=== PATIENT | male | born 1980 | race Hispanic/Latino ===

== ENCOUNTER 2025-03-25 10:20 | Emergency (ER) | payer OTHER ==
[~2025-03-25] VITALS: Ht 167.6 cm; Wt 79.5 kg
[2025-03-25 10:38] VITALS: TEMP 97
[2025-03-25 13:00] LABS: BASO # 0.1 10^3/uL (0.0-0.2); BASO % 0.5 % (0.0-1.0); EOS # 0.3 10^3/uL (0.0-0.5); EOS % 2.4 % (0.0-3.0); LYMPH # 2.8 10^3/uL (1.5-5.0); LYMPH % 26.2 % (24.0-44.0); MONO # 0.8 10^3/uL (0.0-0.8); MONO % 7.2 % (2.0-8.0); NEUTROPHILS # 6.7 10^3/uL (1.5-8.5); NEUTROPHILS % 63.3 % (36.0-66.0); PLATELET COUNT, AUTOMATED 315 10^3/uL (150-450)
[2025-03-25 13:06] LABS: ERYTHROCYTE SEDIMENTATION RATE 9 mm/hr (0-15)
[2025-03-25 13:34] LABS: CK-MB VALUE MASS 1.9 NG/ML (<3.6)
[2025-03-25 13:36] LABS: C REACTIVE PROTEIN QUANTITATIV < 0.50 MG/DL (<1.0)
[2025-03-25 13:37] LABS: ALT/SGPT 33 U/L (7.0-40); AST/SGOT 27 U/L (<34); CALCIUM LEVEL 9.1 MG/DL (8.5-10.1); CARBON DIOXIDE LEVEL 27 MMOL/L (20-31); CHLORIDE LEVEL 108 MMOL/L (98-107); CREATININE FOR GFR 0.81 MG/DL (0.70-1.30); GLOMERULAR FILTRATION RATE > 90.0 (>60); MAGNESIUM LEVEL 1.9 MG/DL (1.8-2.4); POTASSIUM SERUM 4.5 MMOL/L (3.5-5.1); SODIUM LEVEL 140 MMOL/L (136-145)
[2025-03-25 13:39] LABS: FREE T4 1.15 NG/DL (0.89-1.76)
[2025-03-25 13:43] LABS: CPK CREATINE PHOSPHOKINASE 125 U/L (46-171); MB/CK RELATIVE INDEX 1.52 (< OR =4)
[2025-03-25] MEDS ORDERED: GABA-1490 PO (14:16)
[2025-03-25] MEDS ORDERED: TIZA10TA PO (14:16)
[2025-03-25] MEDS ORDERED: CELE1CAP99 PO (14:16)
[2025-03-25] MEDS ORDERED: LEXA1TAB PO (14:16)
[2025-03-25] MEDS ORDERED: HOME MED LIST COMPLETE! XX SCH (14:20)
[2025-03-25] MEDS: NS (Normal Saline) 0.9% 1,000 ML IV ONE (14:59)
[2025-03-25 15:00] VITALS: BP 145/101
[2025-03-25 15:05] VITALS: O2SAT 99
== END 2025-03-25 15:38 | disposition home or self-care (01) ==
LOC: EDBD 10:20 → M ED 14:16
DX: E86.0 Dehydration (principal)